=== PATIENT | female | born 1930 | race Caucasian/White ===

== ENCOUNTER 2018-01-03 18:54 | Emergency (ER) | payer OTHER ==
[~2018-01-03] VITALS: Ht 152.4 cm; Wt 63.5 kg
--- NOTE | ~2018-01-03 | EKG ---
[place], [place] ELECTROCARDIOGRAM REPORT NAME: BRIAN HOOKS UNIT #: [id number] ROOM: DOCTOR: AGNIESZKA DRAFT REPORT BIRTHDATE: [birth year] [facility] Test Date: 2018-01-03 Test Time: 19:17:43 Pat Name: BRIAN HOOKS Department: Room: Gender: F Graphic Art Designer: : [id number] Requested By: IGLESIA THACKER Order Number: [id number] Reading MD: Measurements Intervals [place] Rate: 73 P: 38 [place]: 184 QRS: -22 QRSD: 75 T: 73 QT: 406 QTc: 448 Interpretive Statements Sinus rhythm Borderline left axis deviation No previous ECG available for comparison CM:EKGRPT:ELECTROCARDIOGRAM REPORT 16 [id number] IGLESIA GREEN DRAFT REPORT IGLESIA THACKER DO
[2018-01-03 19:27] LABS: BASO % 0.5 % (0.0-1.0); EOS # 0.2 10*3/uL (0.0-0.4); HEMATOCRIT 39.7 % (37.0-47.0); HEMOGLOBIN 12.6 g/dl (12.0-16.0); LYMPH # 0.9 10*3/uL (1.3-4.4); LYMPH % 11.3 % (27.0-41.0); MEAN CELL VOLUME 100.3 fl (81.0-99.0); MEAN CORPUSCULAR HGB 31.8 pg (27.0-31.0); MEAN CORPUSCULAR HGB CONC 31.7 g/dl (33.0-37.0); MEAN PLATELET VOLUME 10.8 fl (9.6-12.3); MONO # 0.6 10*3/uL (0.1-1.0); MONO % 7.9 % (3.0-9.0); NEUT # 6.3 10*3/uL (2.3-7.9); PLATELET COUNT AUTOMATED 176 10*3/uL (130-400); RED BLOOD COUNT 3.96 10*6/uL (4.10-5.10); RED CELL DISTRI WIDTH 13.2 % (0-14.5)
[2018-01-03 19:42] LABS: ACT PARTIAL THROMBO TIME 22.3 SECONDS (20.8-31.5); INTERNATIONAL NORM RATIO 0.9 (2.0-3.5)
[2018-01-03 19:43] LABS: BILIRUBIN NEGATIVE (NEGATIVE); BLOOD 1+ (NEGATIVE); CLARITY SL CLOUDY (CLEAR); COLOR YELLOW (YELLOW); GLUCOSE NEGATIVE (NEGATIVE); KETONE NEGATIVE (NEGATIVE); LEUKO ESTERASE 3+ (NEGATIVE); NITRITE NEGATIVE (NEGATIVE); UROBILINOGEN 0.2 E.U./dl (0.2-1.0)
[2018-01-03 19:44] LABS: ALBUMIN 3.2 gm/dl (3.1-4.5); ALKALINE PHOSPHATASE 74 U/L (45-117); BUN 32 mg/dl (7-24); CHLORIDE 107 mmol/L (98-107); CREATININE 0.59 mg/dL (0.55-1.02); POTASSIUM 3.7 mmol/L (3.5-5.1); SGOT/AST 14 IU/L (3-35); SGPT/ALT 22 U/L (12-78); SODIUM 144 mmol/L (136-145); TOTAL PROTEIN 7.3 gm/dL (6.4-8.2)
[2018-01-03 19:46] LABS: TROPONIN I < 0.015 ng/ml (<0.045)
[2018-01-03 19:52] LABS: BACTERIA 2+; EPITHELIAL CELLS 0-2; WBC TNTC wbc/hpf (0-5)
[2018-01-03] MEDS ORDERED: SEPTDS PEG (22:42)
== END 2018-01-03 22:46 ==
LOC: ED 18:54
PROVIDERS: Student in an Organized Health Care Education/Training Program
DX: N39.0 Urinary tract infection, site not specified (principal); R11.10 Vomiting, unspecified; F17.200 Nicotine dependence, unspecified, uncomplicated; Z93.1 Gastrostomy status; Z86.73 Personal history of transient ischemic attack (TIA), and cerebral infarction without residual deficits; Z88.5 Allergy status to narcotic agent

== ENCOUNTER 2018-02-16 22:19 | Emergency (ER) | payer OTHER ==
[~2018-02-16] VITALS: Ht 165.1 cm; Wt 72.6 kg
[~2018-02-16 22:19] MED LIST: SEPTDS PEG
[2018-02-16 23:23] LABS: BASO % 0.2 % (0.0-1.0); EOS % 0.1 % (1.0-4.0); HEMATOCRIT 37.9 % (37.0-47.0); HEMOGLOBIN 12.3 g/dl (12.0-16.0); LYMPH # 0.7 10*3/uL (1.3-4.4); LYMPH % 5.9 % (27.0-41.0); MEAN CELL VOLUME 95.7 fl (81.0-99.0); MEAN CORPUSCULAR HGB 31.1 pg (27.0-31.0); MEAN CORPUSCULAR HGB CONC 32.5 g/dl (33.0-37.0); MEAN PLATELET VOLUME 10.5 fl (9.6-12.3); MONO # 0.9 10*3/uL (0.1-1.0); MONO % 7.5 % (3.0-9.0); NEUT # 10.4 10*3/uL (2.3-7.9); NEUT % 85.9 % (47.0-73.0); PLATELET COUNT AUTOMATED 182 10*3/uL (130-400); RED BLOOD COUNT 3.96 10*6/uL (4.10-5.10); RED CELL DISTRI WIDTH 13.4 % (0-14.5); WHITE BLOOD COUNT 12.1 10*3/uL (4.8-10.8)
[2018-02-16 23:36] LABS: ACT PARTIAL THROMBO TIME 24.5 SECONDS (20.8-31.5)
[2018-02-16 23:43] LABS: ALBUMIN 2.7 gm/dl (3.1-4.5); ALKALINE PHOSPHATASE 73 U/L (45-117); BUN 33 mg/dl (7-24); CHLORIDE 98 mmol/L (98-107); CREATININE 1.08 mg/dL (0.55-1.02); POTASSIUM 4.1 mmol/L (3.5-5.1); SGOT/AST 15 IU/L (3-35); SGPT/ALT 20 U/L (12-78); SODIUM 133 mmol/L (136-145); TOTAL PROTEIN 7.6 gm/dL (6.4-8.2)
[2018-02-16 23:45] LABS: TROPONIN I < 0.015 ng/ml (<0.045)
[2018-02-17 00:25] LABS: BILIRUBIN NEGATIVE (NEGATIVE); BLOOD 2+ (NEGATIVE); CLARITY CLOUDY (CLEAR); COLOR YELLOW (YELLOW); GLUCOSE NEGATIVE (NEGATIVE); KETONE NEGATIVE (NEGATIVE); LEUKO ESTERASE 3+ (NEGATIVE); NITRITE NEGATIVE (NEGATIVE); SPECIFIC GRAVITY 1.015 (1.005-1.030); UROBILINOGEN 0.2 E.U./dl (0.2-1.0)
[2018-02-17 01:00] LABS: BACTERIA 3+; RBC 0-2 rbc/hpf (0-2)
== END 2018-02-17 04:55 | disposition short-term general hospital (02) ==
LOC: ED 22:19
PROVIDERS: Student in an Organized Health Care Education/Training Program
DX: A41.9 Sepsis, unspecified organism (principal); N20.1 Calculus of ureter; N39.0 Urinary tract infection, site not specified; K94.23 Gastrostomy malfunction; Z88.5 Allergy status to narcotic agent

== ENCOUNTER 2019-03-22 13:37 | Inpatient (IN) | payer OTHER ==
[~2019-03-22] VITALS: Ht 154.9 cm; Wt 74.9 kg
[2019-03-22 13:38] VITALS: BP 112/66
[2019-03-22 14:21] LABS: BASO % 0.6 % (0.0-1.0); EOS # 0.3 10*3/uL (0.0-0.4); EOS % 3.7 % (1.0-4.0); HEMATOCRIT 33.3 % (37.0-47.0); HEMOGLOBIN 10.1 g/dl (12.0-16.0); LYMPH # 1.5 10*3/uL (1.3-4.4); MEAN CORPUSCULAR HGB 28.2 pg (27.0-31.0); MEAN CORPUSCULAR HGB CONC 30.3 g/dl (33.0-37.0); MEAN PLATELET VOLUME 10.3 fl (9.6-12.3); MONO # 0.6 10*3/uL (0.1-1.0); MONO % 8.2 % (3.0-9.0); NEUT # 4.7 10*3/uL (2.3-7.9); NEUT % 65.8 % (47.0-73.0); PLATELET COUNT AUTOMATED 241 10*3/uL (130-400); RED BLOOD COUNT 3.58 10*6/uL (4.10-5.10); RED CELL DISTRI WIDTH 15.5 % (0-14.5); WHITE BLOOD COUNT 7.1 10*3/uL (4.8-10.8)
[2019-03-22 14:42] LABS: BILIRUBIN NEGATIVE (NEGATIVE); BLOOD 2+ (NEGATIVE); CLARITY CLOUDY (CLEAR); COLOR YELLOW (YELLOW); GLUCOSE NEGATIVE (NEGATIVE); KETONE NEGATIVE (NEGATIVE); LEUKO ESTERASE 3+ (NEGATIVE); NITRITE NEGATIVE (NEGATIVE); SPECIFIC GRAVITY 1.015 (1.005-1.030); UROBILINOGEN 0.2 E.U./dl (0.2-1.0)
[2019-03-22 14:43] LABS: ALBUMIN 2.7 gm/dl (3.1-4.5); ALKALINE PHOSPHATASE 68 U/L (45-117); BUN 31 mg/dl (7-24); CHLORIDE 103 mmol/L (98-107); CREATININE 0.96 mg/dL (0.55-1.02); POTASSIUM 4.7 mmol/L (3.5-5.1); SGOT/AST 14 IU/L (3-35); SGPT/ALT 18 U/L (12-78); SODIUM 135 mmol/L (136-145); TOTAL PROTEIN 6.6 gm/dL (6.4-8.2)
--- NOTE | 2019-03-22 14:54 | NUR ---
LAB CALLS PTS LACTIC ACID IS 2.3. DOC MADE AWARE.
[2019-03-22 15:00] LABS: BACTERIA 2+; EPITHELIAL CELLS 0-2; WBC TNTC wbc/hpf (0-5)
[2019-03-22 17:36] VITALS: BP 144/67
--- NOTE | 2019-03-22 17:36 | NUR ---
A 89, admitted to , under the services of Dr. JASMIN VERA,BARBARA Cavazos with a diagnosis of AMS, MALNUTRITION. Chief complaint is AMS. Patient arrived via bed from ER. Monitor applied. Initial assessment completed. Vital signs taken and recorded. DR. JASMIN VERA,BARBARA Cavaozs notified of admission to the unit. Orders received. See assessment for past medical history, medications and allergies. Patient and/or family oriented to unit. Clothing/patient valuable form completed. ELIAS RODRIGUEZ
--- NOTE | 2019-03-22 17:40 | NUR ---
IN TO SEE PATIENT, POKE TO FAMILY ABOUT CARE. AWARE OF UA RESULTS.
[2019-03-22] MEDS ORDERED: PROSOURCE PLUS887 ML PEG (18:25)
[2019-03-22] MEDS ORDERED: NUTREN 2.0250 ML PEG (18:25)
[2019-03-22] MEDS ORDERED: ASPIRIN CHEWABL81 M1 PEG (18:26)
[2019-03-22] MEDS ORDERED: BIOTENE DRY M1000 ML PEG (18:27)
[2019-03-22] MEDS ORDERED: VITAMIN D31000 UNI1 PEG (18:28)
[2019-03-22] MEDS ORDERED: PLAVIX75 M1 PEG (18:28)
[2019-03-22] MEDS ORDERED: CRANBERRY300 MG PEG (18:29)
[2019-03-22] MEDS ORDERED: Fluoxetine20 MG/5 ML PEG (18:29)
[2019-03-22] MEDS ORDERED: Ipratropium Brom3 ML INH (18:30)
[2019-03-22] MEDS ORDERED: LEVEMIR FL100 UNIT/1 SQ (18:31)
[2019-03-22] MEDS ORDERED: LOPRESSOR25 MG PEG (18:32)
[2019-03-22] MEDS ORDERED: REGLAN 5MG/5 MG/5 ML PEG (18:32)
[2019-03-22] MEDS ORDERED: MILK OF MA400 MG/5 M PEG (18:33)
[2019-03-22] MEDS ORDERED: MIRALAX17 GM PEG (18:33)
[2019-03-22] MEDS ORDERED: OMEPRAZOLE20 M3 PEG (18:34)
[2019-03-22] MEDS ORDERED: POTASSIUM20 MEQ/16 PEG (18:36)
[2019-03-22] MEDS ORDERED: FLORASTOR250 MG PEG (18:37)
[2019-03-22] MEDS ORDERED: TYLENOL EXTRA500 MG PEG (18:37)
--- NOTE | 2019-03-22 18:50 | NUR ---
CALLED, CONT AND HELD HOME MEDS PER WISHES. ORDERS ADDED PER WISHES.
[2019-03-22 20:00] VITALS: BP 129/55
[2019-03-23] VITALS: BP 111/57
--- NOTE | 2019-03-23 01:10 | NUR ---
24 HR chart check completed.
[2019-03-23 06:08] LABS: BASO % 0.5 % (0.0-1.0); EOS # 0.2 10*3/uL (0.0-0.4); EOS % 3.2 % (1.0-4.0); HEMATOCRIT 32.4 % (37.0-47.0); HEMOGLOBIN 9.5 g/dl (12.0-16.0); LYMPH # 1.1 10*3/uL (1.3-4.4); LYMPH % 16.8 % (27.0-41.0); MEAN CELL VOLUME 95.6 fl (81.0-99.0); MEAN CORPUSCULAR HGB CONC 29.3 g/dl (33.0-37.0); MEAN PLATELET VOLUME 11.1 fl (9.6-12.3); MONO # 0.5 10*3/uL (0.1-1.0); MONO % 8.1 % (3.0-9.0); NEUT # 4.5 10*3/uL (2.3-7.9); NEUT % 70.9 % (47.0-73.0); PLATELET COUNT AUTOMATED 198 10*3/uL (130-400); RED BLOOD COUNT 3.39 10*6/uL (4.10-5.10); RED CELL DISTRI WIDTH 15.4 % (0-14.5); WHITE BLOOD COUNT 6.3 10*3/uL (4.8-10.8)
[2019-03-23 06:34] LABS: BUN 23 mg/dl (7-24); CHLORIDE 108 mmol/L (98-107); CREATININE 0.66 mg/dL (0.55-1.02); POTASSIUM 4.2 mmol/L (3.5-5.1); SODIUM 138 mmol/L (136-145)
[2019-03-23 08:00] VITALS: BP 126/58
[2019-03-23 12:00] VITALS: BP 147/61
[2019-03-23] MEDS ORDERED: AUGMENTIN 875-875 MG PO (14:27)
--- NOTE | 2019-03-23 14:50 | NUR ---
Notified Dr. Mallory that there was purulent drainage at patients peg tube site. See new orders. Site was cleaned with NS and new dry gauze dressing applied. Patient tolerated well.
[2019-03-23 16:00] VITALS: BP 121/65
--- NOTE | 2019-03-23 18:38 | NUR ---
Notified that patients tongue has a thick white coating. See new orders.
[2019-03-23 20:00] VITALS: BP 107/52
[2019-03-24] VITALS: BP 122/45
--- NOTE | 2019-03-24 02:00 | NUR ---
24 HR chart check completed.
[2019-03-24 06:25] LABS: BUN 18 mg/dl (7-24); CHLORIDE 109 mmol/L (98-107); CREATININE 0.63 mg/dL (0.55-1.02); POTASSIUM 4.4 mmol/L (3.5-5.1); SODIUM 139 mmol/L (136-145)
--- NOTE | 2019-03-24 07:45 | NUR ---
PHYSICAL THERAPY PT SCREEN COMPLETED TODAY; RESIDENT IS FROM [place] WHERE SHE IS [facility] FOR TRANSFERS AND NON AMBULATORY. FUNCTIONAL MOBILITY IS AT BASELINE ON EVAL AND THEREFORE NO PT SERVICES ARE RECOMMENDED AT THIS TIME. THANK YOU FOR REFERRAL NATTY LOPEZ PT
[2019-03-24 08:00] VITALS: BP 147/51
--- NOTE | 2019-03-24 12:00 | NUR ---
IN TO DO PT'S PEG FEEDING. WATER AND TUBE FEED NOT FLOWING FREELY THROUGH TUBE. PT'S ABDOMEN IS DISTENDED BUT NOT PAINFUL. PT STATES SHE IS FULL. PT TOLERATED 75CC OF TUBE FEED AND A WATER FLUSH. FAMILY AT BEDSIDE SAID THAT THIS IS NORMAL FOR HER. WILL CONTINUE TO MONITOR.
[2019-03-24 16:00] VITALS: BP 147/60
--- NOTE | 2019-03-24 19:38 | NUR ---
PATIENT RESTING IN BED COMPLETING BREATHING TREATMENT. PATIENT WILL RESPOND WITH ONLY A COUPLE WORDS. PATIENT DOES STATE THAT SHE FEELS "FULL" AT THIS TIME AND DOES NOT WANT HER BOLUS TUBE FEEDING. ABDOMEN IS DISTENDED. PATIENT DENIES PAIN AT THIS TIME. IV INFUSING PER ORDER. BED ALARM ON, BED IN LOW POSITION, CALL LIGHT IN REACH
[2019-03-24 20:00] VITALS: BP 140/96; BP 157/74
--- NOTE | 2019-03-24 21:03 | NUR ---
PEG TUBE PLACEMENT CHECKED VIA AIR BOLUS WITH THIS RN AND RN FARHANA. NO RESIDUAL NOTED. TUBE FEED GIVEN PER ORDER WITH MEDICATIONS AND 60CC OF FREE WATER. PATIENT TOLERATED WELL AND DENIES PAIN.
--- NOTE | 2019-03-24 22:13 | NUR ---
DR CASTELLANOS AWARE OF PATIENT CONTINUING TO HAVE SHAKING ON THE RIGHT SIDE WITH EYES ROLLING IN THE BACK OF HER HEAD. ORDER TAKEN FOR MAMIE. ALSO MADE AWARE OF PATIENT'S BLOOD SUGAR AND NOT GIVING LANTUS. SEE NEW ORDERS.
--- NOTE | 2019-03-24 22:54 | NUR ---
PEG TUBE PLACEMENT VERIFIED VIA AIR BOLUS BEFORE KEPPRA ADMINISTRATION.
[2019-03-25] VITALS: BP 142/62
--- NOTE | 2019-03-25 00:02 | NUR ---
24 HR chart check completed.
--- NOTE | 2019-03-25 06:00 | NUR ---
PEG TUBE PLACEMENT CHECKED VIA AIR BOLUS. NO RESIDUAL AT THIS TIME. TUBE FEEDING BOLUS GIVEN PER ORDER. TOLERATED WELL AT THIS TIME.
--- NOTE | 2019-03-25 06:16 | NUR ---
ATTEMPTED TO CALL DR BLOCK WITH CONSULT. NO ANSWER
--- NOTE | 2019-03-25 06:21 | NUR ---
ATTEMPTED TO CALL DR BLOCK A SECOND TIME REGARDING NEW CONSULT. NO ANSWER
[2019-03-25 06:24] LABS: BUN 13 mg/dl (7-24); CHLORIDE 107 mmol/L (98-107); CREATININE 0.76 mg/dL (0.55-1.02); POTASSIUM 4.1 mmol/L (3.5-5.1); SODIUM 139 mmol/L (136-145)
--- NOTE | 2019-03-25 06:59 | NUR ---
DR BLOCK AWARE OF CONSULT. ORDERS TAKEN
[2019-03-25 08:00] VITALS: BP 152/56
--- NOTE | 2019-03-25 09:06 | NUR ---
Patient comes from [facility] where she is [facility]. Patient is ok to return when medically stable.
--- NOTE | 2019-03-25 09:27 | NUR ---
Updated clinicals faxed to Marcela at [facility] for review. patient is snf and ok to return when medically stable for discharge.
--- NOTE | 2019-03-25 10:30 | NUR ---
Cooling Room Attendant in to see patient. She is able to answer yes/no questions. She is a LTC resident at [facility]. land use planner following. When medically stable she will be discharged to [facility].
--- NOTE | 2019-03-25 11:02 | NUR ---
DR FLOWERS CALLS UNIT. NOTIFIED OF CONSULT. REVIEWED LABS, UC, BC AND WOUND CULTURES. ORDERS RECEIVED.
[2019-03-25 12:00] VITALS: BP 142/97; BP 156/70
--- NOTE | 2019-03-25 13:49 | NUR ---
SPEECH PATHOLOGY Nursing screen completed. Patient is functioning at max. potential therefore speech services are not indicated at this time. This dept. is available if future needs arise. ELLEN BRADLEY MSCCC-SQL SERVER DEVELOPER
--- NOTE | 2019-03-25 14:27 | NUR ---
SPOKE WITH PT DAUGHTER BASIL DEE RE: CODE STATUS PT CURRENTLY DNRCCA. PT DAUGHTER WOULD LIKE HER TO BE A DNRCC. DR CASTELLANOS ON THE UNIT. NOTIFIED OF CODE STATUS CHANGE REQUEST, DOCUMENT SIGNED.
--- NOTE | 2019-03-25 15:57 | NUR ---
Nursing screen received and chart reviewed. Patient admitted for an evaluation of tremors with a past medical history including CVA with left sided paralysis. If patient has a decline in ADLs and functional mobility/transfers, please send OT orders. Thank you. Maggie Sands OTR/L
[2019-03-25 16:00] VITALS: BP 151/71
--- NOTE | 2019-03-25 16:00 | NUR ---
TOOK OVER CARE OF PT AT THIS TIME. PT RESTING IN BED, EYES CLOSED. RESPIRATIONS EASY AND UNLABORED ON ROOM AIR. FAMILY AT BEDSIDE. PT IV SITE TO RIGHT ARM IS PATENT, DRESSING C/D/I. 0.9NS RUNNING PER ORDERS. PT ASSESSED. PEG TO PT LUQ IS PATENT, DRESSING C/D/I. THERE ARE NO S/S OF DISTRESS NOTED. LUNG SOUNDS DIMINISHED T/O. PT MCMULLEN IS IN TACT/PATENT, DRAINING STRAW COLORED URINE. ALL SAFETY MEASURES ARE IN PLACE. HOB ELEVATED, CALL LIGHT IN REACH.
--- NOTE | 2019-03-25 19:17 | NUR ---
DR BLOCK AT BEDSIDE
--- NOTE | 2019-03-25 19:27 | NUR ---
ORDER FROM DR BLOCK FOR BACITRACIN DAILY TO PEG TUBE SITE
[2019-03-25 20:00] VITALS: BP 134/59
--- NOTE | 2019-03-25 20:41 | NUR ---
PEG TUBE PLACEMENT VERIFIED VIA AIR BOLUS. 100CC OF TUBE FEED GIVEN AT THIS TIME PER ORDER WITH MEDICATIONS. PATIENT TOLERATED WELL. NO RESIDUAL PRIOR TO ADMINISTRATION
--- NOTE | 2019-03-25 23:30 | NUR ---
24 HR chart check completed.
[2019-03-26] VITALS: BP 128/71
--- NOTE | 2019-03-26 00:15 | NUR ---
PEG TUBE PLACEMENT VERIFIED VIA AIR BOLUS. TUBE FEEL GIVEN PER ORDER
--- NOTE | 2019-03-26 05:45 | NUR ---
PEG TUBE CHECKED VIA AIR BOLUS. TUBE FEEDING AND MEDS GIVEN PER ORDER WITHOUT DIFFICULTY. PATIENT TOLERATED WELL.
[2019-03-26 07:29] LABS: BUN 13 mg/dl (7-24)
[2019-03-26 08:00] VITALS: BP 150/60
--- NOTE | 2019-03-26 10:30 | NUR ---
Associate Professor Of History in to see patient. She is a LTC resident at [facility]. space planner following. When medically stable she will be discharged to [facility]. Per multidisciplinary discharge planning meeting patient will be in the hospital a couple more days as her cultures are positive and she is receiving IV antibiotics per Dr. Mallory.
[2019-03-26 12:00] VITALS: BP 134/58
[2019-03-26 16:00] VITALS: BP 123/51
--- NOTE | 2019-03-26 19:19 | NUR ---
PATIENT RESTING IN BED WITH NO S/S OF DISTRESS. BED IN LOWEST POSITION, CALL LIGHT IN REACH
[2019-03-26 20:00] VITALS: BP 147/64
--- NOTE | 2019-03-26 20:58 | NUR ---
PEG TUBE PLACEMENT VERIFIED VIA AIR BOLUS. TUBE FEED GIVEN PER ORDER WITH MEDICATIONS. PATIENT TOLERATED WELL.
[2019-03-27] VITALS: BP 138/45
--- NOTE | 2019-03-27 | NUR ---
TUBE FEED GIVEN PER ORDER. PLACEMENT VERIFIED VIA AIR BOLUS
--- NOTE | 2019-03-27 06:00 | NUR ---
PATIENT TUBE FEED GIVEN PER ORDER. PLACEMENT VERIFIED VIA AIR BOLUS. PATIENT TOLERATED WELL
[2019-03-27 08:00] VITALS: BP 149/52
--- NOTE | 2019-03-27 08:00 | NUR ---
Updated clinicals faxed to [facility] for review. patient is custodial care and ok to return when medically stable for discharge.
[2019-03-27 12:00] VITALS: BP 137/67
[2019-03-27 16:00] VITALS: BP 154/63
[2019-03-27 20:00] VITALS: BP 132/55; BP 145/70
[2019-03-28] VITALS: BP 132/60; BP 147/85
--- NOTE | 2019-03-28 07:40 | NUR ---
Patient updated progress notes faxed to Marcela at [facility]. Patient is intermediate school teacher care and ok to return when medically stable for discharge.
--- NOTE | 2019-03-28 07:58 | NUR ---
Discussed with Dr. Mallory regarding IV Merrem being ordered by Dr. Perez and patient can be discharged to [facility] when medically stable and her midline is in. He verbalized an understanding and plan is to discharge the patient today. media planner / buyer following.
[2019-03-28 08:00] VITALS: BP 150/66
--- NOTE | 2019-03-28 09:00 | NUR ---
PEG TUBE PLACEMENT VERIFIED WITH AIR BOLUS. PT TOLERATED MEDS AND PEG FEED WITHOUT DIFFICULTY. ISOLATION PRECAUTIONS MAINTAINED. WILL MONITOR
[2019-03-28] MEDS ORDERED: MERREM IV1 GM IV (09:57)
--- NOTE | 2019-03-28 11:00 | NUR ---
DR TAN OFFICE CALLED RE: BC RESULTS SHE NEEDS TO BE NOTIFIED OF.
--- NOTE | 2019-03-28 11:14 | NUR ---
DR HYDE CALLS UNIT, NOTIFIED OF +BC FINAL RESULTS.
[2019-03-28 12:00] VITALS: BP 144/54
--- NOTE | 2019-03-28 12:00 | NUR ---
DAUGHTER HERE AND AWARE OF PLAN OF CARE
--- NOTE | 2019-03-28 13:37 | NUR ---
Patient is discharged to return to [facility], nursing/forward air controller/air officer all notified.
--- NOTE | 2019-03-28 13:37 | NUR ---
MIDLINE PLACED PER ORDER.
--- NOTE | 2019-03-28 14:49 | NUR ---
DAUGHTER HERE AND AWARE OF DISCHARGE/REFINERY OPERATOR LIGHT ENDS RECOVERY TIME
--- NOTE | 2019-03-28 14:49 | NUR ---
REPORT CALLED TO [facility].
[2019-03-28] MEDS ORDERED: MEROPENEM1 G1 IV (15:13)
--- NOTE | 2019-03-28 15:35 | NUR ---
Discharge instructions reviewed with patient/family. Patient receptive and verbalizes understanding. Follow-up care arranged. Written instructions given to patient/family. RAMAN KRAMER
== END 2019-03-28 15:35 | DRG 689 ==
LOC: ED 13:37 → 4E 16:23 → EDHOLD 16:23 → 4E 16:50
PROVIDERS: Emergency Medicine; ADMIT Internal Medicine
PROC: 05HY33Z Insertion of Infusion Device into Upper Vein, Percutaneous Approach (ICD-10-PCS; principal; 2019-03-28)
DX: N39.0 Urinary tract infection, site not specified (principal); G93.41 Metabolic encephalopathy; G40.89 Other seizures; E44.0 Moderate protein-calorie malnutrition; I69.354 Hemiplegia and hemiparesis following cerebral infarction affecting left non-dominant side; E86.0 Dehydration; I10 Essential (primary) hypertension; R62.7 Adult failure to thrive; Z66 Do not resuscitate; K59.09 Other constipation; R13.19 Other dysphagia; E11.649 Type 2 diabetes mellitus with hypoglycemia without coma; B96.89 Other specified bacterial agents as the cause of diseases classified elsewhere; Z51.5 Encounter for palliative care; E11.43 Type 2 diabetes mellitus with diabetic autonomic (poly)neuropathy; K31.84 Gastroparesis; Z93.1 Gastrostomy status; Z88.0 Allergy status to penicillin; Z87.440 Personal history of urinary (tract) infections; Z88.5 Allergy status to narcotic agent; Z68.31 Body mass index [BMI] 31.0-31.9, adult

== ENCOUNTER 2019-04-20 11:08 | Inpatient (IN) | payer OTHER ==
[~2019-04-20] VITALS: Ht 152.4 cm; Wt 82.8 kg
[~2019-04-20 11:08] MED LIST changes: +ASPIRIN CHEWABL81 M1 PEG; +AUGMENTIN 875-875 MG PO; +BIOTENE DRY M1000 ML PEG; +CRANBERRY300 MG PEG; +FLORASTOR250 MG PEG; +Fluoxetine20 MG/5 ML PEG; +Ipratropium Brom3 ML INH; +LEVEMIR FL100 UNIT/1 SQ; +LOPRESSOR25 MG PEG; +MEROPENEM1 G1 IV; +MERREM IV1 GM IV; +MILK OF MA400 MG/5 M PEG; +MIRALAX17 GM PEG; +NUTREN 2.0250 ML PEG; +OMEPRAZOLE20 M3 PEG; +PLAVIX75 M1 PEG; +POTASSIUM20 MEQ/16 PEG; +PROSOURCE PLUS887 ML PEG; +REGLAN 5MG/5 MG/5 ML PEG; +TYLENOL EXTRA500 MG PEG; +VITAMIN D31000 UNI1 PEG
[2019-04-20 11:28] VITALS: BP 135/59
[2019-04-20 11:33] LABS: BILIRUBIN NEGATIVE (NEGATIVE); BLOOD 3+ (NEGATIVE); CLARITY CLOUDY (CLEAR); COLOR YELLOW (YELLOW); GLUCOSE NEGATIVE (NEGATIVE); KETONE NEGATIVE (NEGATIVE); LEUKO ESTERASE 3+ (NEGATIVE); NITRITE POSITIVE (NEGATIVE); UROBILINOGEN 0.2 E.U./dl (0.2-1.0)
--- NOTE | 2019-04-20 11:36 | NUR ---
PT IS DNRCCA SO SHE WAS NOT PLACED ON BREAD ROOM HAND AT THIS TIME. FAMILY IN ROOM CALL LIGHT IN REACH
[2019-04-20 11:40] LABS: BACTERIA 2+; WBC TNTC wbc/hpf (0-5)
[2019-04-20 11:49] LABS: BASO % 0.2 % (0.0-1.0); EOS # 0.1 10*3/uL (0.0-0.4); HEMATOCRIT 32.8 % (37.0-47.0); HEMOGLOBIN 9.9 g/dl (12.0-16.0); LYMPH # 1.3 10*3/uL (1.3-4.4); LYMPH % 14.4 % (27.0-41.0); MEAN CORPUSCULAR HGB 28.4 pg (27.0-31.0); MEAN CORPUSCULAR HGB CONC 30.2 g/dl (33.0-37.0); MEAN PLATELET VOLUME 11.3 fl (9.6-12.3); NEUT # 6.7 10*3/uL (2.3-7.9); NEUT % 73.2 % (47.0-73.0); PLATELET COUNT AUTOMATED 151 10*3/uL (130-400); RED BLOOD COUNT 3.49 10*6/uL (4.10-5.10); RED CELL DISTRI WIDTH 15.4 % (0-14.5); WHITE BLOOD COUNT 9.2 10*3/uL (4.8-10.8)
[2019-04-20 12:07] LABS: ALBUMIN 2.5 gm/dl (3.1-4.5); ALKALINE PHOSPHATASE 72 U/L (45-117); BUN 27 mg/dl (7-24); CHLORIDE 105 mmol/L (98-107); POTASSIUM 4.1 mmol/L (3.5-5.1); SGOT/AST 10 IU/L (3-35); SGPT/ALT 17 U/L (12-78); SODIUM 139 mmol/L (136-145); TOTAL PROTEIN 6.2 gm/dL (6.4-8.2); TROPONIN I < 0.015 ng/ml (<0.045)
--- NOTE | 2019-04-20 12:07 | NUR ---
FAMILY NOTIFIED ME PT HAS HAD UTI AND INFECTION AROUND HER G-TUBE HAS BEEN ON ANTIOBIOTICS SINCE HER DISCHARGE FROM HERE BACK TO [facility]. WAS TOLD BY INFECTIOUS DISEASE DR THAT HER MCMULLEN CATH NEEDED TO STAY IN BUT THE [facility] TOLD THEM THAT SHE COULD NOT KEEP MCMULLEN IN WHILE SHE IS IN THE [facility]. DR MAYORGA IN ROOM TALKING WITH FAMILY
--- NOTE | 2019-04-20 12:10 | NUR ---
[place] 2.5 DR MAYORGA AWARE
[2019-04-20 12:20] VITALS: BP 120/54
[2019-04-20 13:00] VITALS: BP 110/49
--- NOTE | 2019-04-20 13:25 | NUR ---
Time: 1325 A 89 year old FEMALE admitted to 5E under services of DR. JASMIN VERA,BARBARA Olivas Pt. arrived via ambulance from ER. Chief complaint: INCREASED CONFUSION, LETHARGY. RAMAN WHITE
[2019-04-20 13:30] VITALS: BP 132/63
[2019-04-20] MEDS ORDERED: AUGMENTIN 875875 MG PO (13:32)
[2019-04-20] MEDS ORDERED: KEPPRA500 MG PEG (13:34)
[2019-04-20] MEDS ORDERED: PREDNISONE20 M1 PO (14:10)
--- NOTE | 2019-04-20 14:47 | NUR ---
CONTACTED DR CASTELLANOS REGARDING ADMISSION ORDERS, STATES HE IS HERE AT THIS TIME AND WILL BE UP TO SEE PT.
[2019-04-20 16:00] VITALS: BP 127/53
--- NOTE | 2019-04-20 17:15 | NUR ---
PT HAS PICC LINE IN PLACE TO RIGHT ARM. DRESSING DATED 04/10 FROM [facility]. DRESSING CHANGED AT THIS TIME. LINE FLUSHES BUT NO BLOOD RETURN. DR CASTELLANOS MADE AWARE AND CXR ORDERED FOR PLACEMENT.
--- NOTE | 2019-04-20 19:25 | NUR ---
24 HR chart check completed.
--- NOTE | 2019-04-20 19:26 | NUR ---
PT RESTING IN BED, RESIPRATIONS EASY AND UNLABORED ON 2L NC. HOB ELEVATED, SAFETY MEASURES IN PLACE. PT AWAKENS WITH VERBAL STIMULI AND SHOWS NO S/S OF DISTRESS. WILL MONITOR. CALL LIGHT IN REACH.
[2019-04-20 20:00] VITALS: BP 120/45
--- NOTE | 2019-04-21 | NUR ---
PT RESTING IN BED. NO S/S OF DISTRESS. RESPIRATIONS EASY AND UNLABORED ON 2L NC. ALL SAFETY MEASURES IN PLACE. HOB ELEVATED. TUBE FEED RUNNING INTO PEG TUBE AT 40 CC /HOUR. NO RESIDUAL NOTED. CALL LIGHT IN REACH.
--- NOTE | 2019-04-21 06:00 | NUR ---
PT GIVEN MEDICATIONS THROUGH PEG TUBE. PEG TUBE FLUSHING WITH EASE, PLACEMENT VERIFIED, NO RESIDUAL NOTED. 200 CC FREE WATER FLUSH GIVEN AT THIS TIME. TUBE FEED CONTINUED ORDERED. HOB ELEVATED, SAFETY MEASURES IN PLACE. CALL LIGHT IN REACH.
[2019-04-21 06:30] LABS: BASO % 0.3 % (0.0-1.0); EOS # 0.2 10*3/uL (0.0-0.4); EOS % 3.2 % (1.0-4.0); HEMATOCRIT 30.3 % (37.0-47.0); LYMPH # 1.1 10*3/uL (1.3-4.4); LYMPH % 16.6 % (27.0-41.0); MEAN CELL VOLUME 92.7 fl (81.0-99.0); MEAN CORPUSCULAR HGB 27.5 pg (27.0-31.0); MEAN CORPUSCULAR HGB CONC 29.7 g/dl (33.0-37.0); MEAN PLATELET VOLUME 11.2 fl (9.6-12.3); MONO # 0.6 10*3/uL (0.1-1.0); MONO % 8.8 % (3.0-9.0); NEUT # 4.8 10*3/uL (2.3-7.9); NEUT % 70.5 % (47.0-73.0); PLATELET COUNT AUTOMATED 151 10*3/uL (130-400); RED BLOOD COUNT 3.27 10*6/uL (4.10-5.10); RED CELL DISTRI WIDTH 15.1 % (0-14.5); WHITE BLOOD COUNT 6.9 10*3/uL (4.8-10.8)
[2019-04-21 06:55] LABS: BUN 19 mg/dl (7-24); CHLORIDE 108 mmol/L (98-107); CREATININE 0.55 mg/dL (0.55-1.02); POTASSIUM 3.9 mmol/L (3.5-5.1); SODIUM 141 mmol/L (136-145)
[2019-04-21 08:00] VITALS: BP 130/94
--- NOTE | 2019-04-21 08:00 | NUR ---
PT RESTING IN BED WITH EYES OPEN. DENIES PAIN WHEN ASKED. VSS. WILL MONITOR.
[2019-04-21 12:00] VITALS: BP 101/39
[2019-04-21 16:00] VITALS: BP 124/42
--- NOTE | 2019-04-21 16:37 | NUR ---
PT LYING IN BED WITH EYES OPEN. FLUSHED PEG TUBE WITH STERILE WATER PER ORDER. DENIES PAIN WHEN ASKED. WILL MONITOR.
[2019-04-21 20:00] VITALS: BP 137/59
--- NOTE | 2019-04-21 22:00 | NUR ---
MEDICATION ADMINSTRATION COMPLETED, PEG-TUBE POSITION IN POSITION CHECKED BY AIR BOLUS AUSCULATATION. PATIENT TOLERATED CURRENT TUBE FEED, NO RESIDUAL. HOB LOCKED AT 30 DEGREES. NO DISTRESS NOTED, CALL LIGHT WITHIN REACH
[2019-04-22] VITALS: BP 120/52
--- NOTE | 2019-04-22 02:28 | NUR ---
24 HR chart check completed.
--- NOTE | 2019-04-22 04:00 | NUR ---
Patient resting quietly with no c/o discomfort. Respirations easy and regular. Vital signs stable. No overt distress. NICKOLAS VAIL
[2019-04-22 08:00] VITALS: BP 130/68
--- NOTE | 2019-04-22 08:02 | NUR ---
VITAL SIGNS STABLE. PO2 100% 2L NC, SKIN WARM, DRY AND INTACT. SKIN TURGOR NON-TENTING, CAPILLARY REFILL <3 SEC. A&O X1, OPENS EYES WHEN NAME IS CALLED, UNABLE TO VERBALIZE. NO NONVERBAL INDICATORS OF PAIN NOTED. HEART SOUNDS NORMAL, LUNG SOUNDS CLEAR THROUGHOUT, BOWEL SOUNDS X4. ABDOMEN SOFT, NON-DISTENDED, NON-TENDER. G TUBE DRESSING DRY AND INTACT. + G TUBE PLACEMENT WITH 30 CC AIR BOLUS, NO RESIDUAL. + PERIPHERAL PULSES, +4 PITTING EDEMA IN LEFT WRIST. PICC LINE SITE IN RIGHT UPPER ARM DRY AND INTACT, NO S/S OF INFECTION. IV SITE IN LEFT HAND DRY AND INTACT, NO S/S OF INFECTION. NO OTHER COMPLAINTS AT THIS TIME, WILL CONTINUE TO MONITOR. MARTY VOGEL
--- NOTE | 2019-04-22 08:20 | NUR ---
24 HR chart check completed.
--- NOTE | 2019-04-22 08:33 | NUR ---
FAMILY REQUESTING TO SPEAK WITH THE NURSE. UPDATED ON PLAN OF CARE. QUESTIONS ANSWERED. REQUESTING TO SPEAK WITH TEACHER'S AIDE. MESSAGE SENT.
--- NOTE | 2019-04-22 09:29 | NUR ---
WANT AD SUPERVISOR received voice message from patients daughter Sofy. WANT AD SUPERVISOR was on floor and received call from Director Of Database Marketing that an SS Consult came through for the same reason. WANT AD SUPERVISOR met with both of patients daughters Sofy and Caity. Patients daughters were concerned over the little information they received from the RN and the Doctor the patient is under. Patients daughter stated that the RN was rude to her when she attempted to obtain information but in person and over the phone later that evening. Patients daughters were interested in moving the patient from [facility] to another facility. WANT AD SUPERVISOR explained that would have be done after patient returns to the facility due to the patient being shelter. Patients daughters were understandable. Patients daughter also wanted a list of doctors that are at [facility] facility (WANT AD SUPERVISOR has a message out to [facility]). WANT AD SUPERVISOR provided patients susan Goetz with a list of area nursing homes. WANT AD SUPERVISOR spoke with the RN Supervisior on today about speaking with the patients family over their concerns with the RN they communicated with last evening. -ETHAN Zamora
--- NOTE | 2019-04-22 09:46 | NUR ---
FAMILY IS VISITING. PT IS RESTING COMFORTABLY IN BED. NO OTHER COMPLAINTS AT THIS TIME. WILL CONTINUE TO MONITOR. MARTY VOGEL
[2019-04-22] MEDS ORDERED: CIPRO500 MG PO (10:33)
--- NOTE | 2019-04-22 10:36 | NUR ---
DR. CASTELLANOS IN TO SEE PATIENT
--- NOTE | 2019-04-22 11:55 | NUR ---
CORPORATE GIVING MANAGER informed of patients discharge. CORPORATE GIVING MANAGER received notice the patients family was requesting a 3pm transport time. CORPORATE GIVING MANAGER spoke with KAMRYN Negro. CORPORATE GIVING MANAGER spoke with [place] to arrange transport for 3pm. CORPORATE GIVING MANAGER spoke with work office rental clerk and informed her of transport time as the patient RN is at lunch. CORPORATE GIVING MANAGER faxed demographics to [place] and notified [facility]. CORPORATE GIVING MANAGER will speak with family when they return to this facility. -ETHAN Zamora
--- NOTE | 2019-04-22 12:58 | NUR ---
REPORT CALLED TO IZA MEDEL AT [facility], [facility]. [facility]
--- NOTE | 2019-04-22 13:48 | NUR ---
ETHAN reached out to patients daughter Sofy [phone]. She is aware of the patients transport time. -ETHAN Zamora
--- NOTE | 2019-04-22 16:00 | NUR ---
[facility] HERE TO TRANSFER PT. VITALS STABLE. OXYGEN INTACT.
--- NOTE | 2019-04-22 16:20 | NUR ---
The Discharge Plan/Instructions have been completed. Discharge instructions reviewed with patient/family. FAMILY receptive and verbalizes understanding. Follow-up care arranged. Written instructions given to patient/family. HEYDI PEREYRA
== END 2019-04-22 16:20 | DRG 70 ==
LOC: ED 11:08 → 5E 12:23 → EDHOLD 12:23 → 5E 13:12
PROVIDERS: Emergency Medicine; ADMIT Internal Medicine
DX: G93.41 Metabolic encephalopathy (principal); E43 Unspecified severe protein-calorie malnutrition; N39.0 Urinary tract infection, site not specified; F33.0 Major depressive disorder, recurrent, mild; Z16.20 Resistance to unspecified antibiotic; F03.90 Unspecified dementia, unspecified severity, without behavioral disturbance, psychotic disturbance, mood disturbance, and anxiety; R62.7 Adult failure to thrive; B96.5 Pseudomonas (aeruginosa) (mallei) (pseudomallei) as the cause of diseases classified elsewhere; I10 Essential (primary) hypertension; K59.09 Other constipation; B96.89 Other specified bacterial agents as the cause of diseases classified elsewhere; E11.43 Type 2 diabetes mellitus with diabetic autonomic (poly)neuropathy; K31.84 Gastroparesis; Z66 Do not resuscitate; Z51.5 Encounter for palliative care; Z86.73 Personal history of transient ischemic attack (TIA), and cerebral infarction without residual deficits; Z93.1 Gastrostomy status; Z88.6 Allergy status to analgesic agent; Z79.899 Other long term (current) drug therapy; Z79.82 Long term (current) use of aspirin; Z79.4 Long term (current) use of insulin; Z87.440 Personal history of urinary (tract) infections; Z74.01 Bed confinement status; Z68.35 Body mass index [BMI] 35.0-35.9, adult